=== PATIENT | male | born 1955 | race Caucasian/White ===

== ENCOUNTER → 2019-02-22 10:07 | Outpatient (CLI) | payer MEDICARE, SELFPAY ==
--- NOTE | 2019-02-22 10:15 | CA_ITS ---
PROCEDURE: 2-D M-mode and color Doppler study INDICATIONS FOR THE TEST: Chest pain COPDX Heart Murmur Tobacco SmokingX Palpitations Fatigue Syncope Edema HypertensionXDiabetes Mellitus Rheumatic Fever SOB [place] Obesity HyperlipidemiaX Family History HD Additional History CAD,RBBB,STENTS PATIENT INFORMATION HEIGHT: 68 WEIGHT:176 GENDER: Male B/P:106/70 2-D/M-MODE INTERPRETATION: 2-D MEASUREMENTS OBSERVED VALUES IN CMS Right Ventricular Dimension (RVDd) 2.0 Interventricular Septum (Thickness)(IVsd) 1.1 Left Ventricular Internal Dimensions(LVIDd) 4.7 Left Ventricular Posterior Wall (Thickness)(LVPWd) 1.2 Aortic Root 3.8 Aortic Cusp Separation 2.1 Left Atrial Dimensions (LAD) 2.5 2D 1. Left atrium is mildly enlarged, left ventricle is normal size, mild concentric left ventricular hypertrophy, visually estimated ejection fraction 55% with no regional wall motion abnormality. 2. The right atrium and right ventricle are normal size and contractility. 3. The aortic valve is thickened and calcified leaflet continue to display mobility. 4. The mitral valve has systolic anterior motion of the mitral valve leaflets. 5. The tricuspid valve is grossly normal. 6. The pulmonic valve is poorly present. 7. No significant pericardial effusion noted. DOPPLER INTERROGATION: Doppler interrogation of the aortic, mitral and tricuspid valvular presence of mild aortic, mild mitral and tricuspid regurgitation, tricuspid regurgitation jet velocity is inadequate for calculation of the right ventricular systolic pressure, grade 1 diastolic dysfunction seen without tissue Doppler evidence of raised left atrial pressure, there is no dynamic left ventricular outflow track obstruction seen at rest. CONCLUSION: 1. Mildly enlarged left atrium, normal left ventricular size, mild concentric left ventricular hypertrophy, visually estimated ejection fraction 55% with no regional wall motion abnormality, grade 1 diastolic dysfunction seen without tissue Doppler evidence of raised left atrial pressure. 2. Mild aortic, mild mitral and tricuspid regurgitation 3. Systolic anterior motion of the mitral valve leaflets, there is no dynamic left ventricular outflow track obstruction seen at rest. 4. No significant pericardial effusion noted.
== END ==
PROVIDERS: PCP Nurse Practitioner Family; Visit Provider Internal Medicine
DX: I25.10 Atherosclerotic heart disease of native coronary artery without angina pectoris (principal)
CPT/HCPCS: 93306

== ENCOUNTER → 2021-08-20 12:04 | Outpatient (CLI) | payer MEDICARE, SELFPAY ==
--- NOTE | 2021-08-20 12:11 | XR_ITS ---
PROCEDURE: XR CHEST 2V CLINICAL HISTORY: tobacco use COMPARISON: No exams were available for comparison FINDINGS: The cardiomediastinal silhouette and pulmonary vascularity are within normal limits. COPD changes. Calcified granuloma left midlung. On the lateral view there appears to be cystic changes along the anterior hemithorax inferiorly. It is uncertain whether this is on the right or the left. No acute bony abnormalities. IMPRESSION: Cystic changes along the anterior hemithorax inferiorly. This could be post inflammatory, infectious, or even neoplastic. Chest CT with contrast suggested further evaluation. Dictated by: Chaz Pruett MD 08/20/2021 13:39 Chaz Pruett MD in [facility] 08/20/2021 13:39
== END ==
PROVIDERS: PCP Nurse Practitioner Family; Visit Provider Internal Medicine
DX: F17.200 Nicotine dependence, unspecified, uncomplicated (principal); I25.10 Atherosclerotic heart disease of native coronary artery without angina pectoris; R00.2 Palpitations
CPT/HCPCS: 71046; 93225; 93226

== ENCOUNTER → 2021-08-22 15:28 | Outpatient (CLI) | payer MEDICARE, SELFPAY ==
[2021-08-22 17:13] LABS: Blood Urea Nitrogen 14 mg/dl (9-20); Estimated Glomerular Filt Rate 85 ml/min (>60); GFR (African American) 103 ML/MIN (>60)
== END ==
PROVIDERS: Visit Provider Internal Medicine
DX: Z01.812 Encounter for preprocedural laboratory examination (principal)
CPT/HCPCS: 82565; 84520

== ENCOUNTER → 2021-08-28 13:05 | Outpatient (CLI) | payer MEDICARE, SELFPAY ==
--- NOTE | 2021-08-28 13:05 | CT_ITS ---
PROCEDURE: CT CHEST W CON CLINCAL INDICATION: abnl cxr Chest pain COMPARISON: CR XR CHEST 2V from 08/20/2021 TECHNIQUE: IV Contrast: 75ml Isovue 370 Axial images obtained with sagittal and coronal reformats. All CT scans at the facility use one or more dose reduction, viz: automated exposure control, ma/kV adjustment per patient size (including targeted exams where dose is matched to indication, i.e. head), or iterative reconstruction technique. FINDINGS: HEART AND MEDIASTINAL STRUCTURES: No mediastinal or hilar mass or adenopathy. Calcified nodes are present in the mediastinum. Coronary artery calcifications and/or stents noted. LUNGS AND PLEURAL SPACES: Panlobular emphysematous changes. The scattered areas of scarring. Faint ground-glass infiltrate noted in the right lower lobe. 6 mm noncalcified nodule in the lingula. Pneumatocele is present in the medial aspect of the left upper lobe. Irregular opacity is present in the lingula anteriorly and inferiorly and may be due to scarring and may account for part of the radiographic abnormality. Also scarring in the right middle lobe could account for part of the radiographic abnormality is well. Both of these areas which project over the anterior hemithorax on the lateral view. BONY STRUCTURES: No acute bony abnormalities apparent. 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 IMPRESSION: 1. No acute finding. 2. Radiographic abnormality could be explained by the scarring in the right middle lobe and lingula and by overlying COPD changes 6 mm noncalcified nodule in the lingula and parenchymal opacity also in the lingula inferiorly which could be due to scarring. Suggest 6 month follow-up to confirm stability. 3. COPD with panlobular emphysema 4. 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
== END ==
PROVIDERS: PCP Nurse Practitioner Family; Visit Provider Nurse Practitioner Family
DX: R93.89 Abnormal findings on diagnostic imaging of other specified body structures (principal)
CPT/HCPCS: 71260; Q9967

== ENCOUNTER 2024-04-23 10:13 | Outpatient (CLI) | payer MEDICARE, SELFPAY ==
--- NOTE | 2024-04-23 10:17 | CA_ITS ---
APPROVED REPORT EXAM: Comprehensive 2D, Doppler, and color-flow Echocardiogram Supervisor Ditching: Leigh Loja CRT Ht: 5 ft 8 in Wt: 165lbs BSA: 1.88 BP: 100/63 mmHg Indications: CAD, Hyperlipidemia, Hypertension/HDD, smoker, Stents, PAD, PVD 2D Dimensions LA Volume 22.40 mL LA Volume Index 11.60 mL/m2 (M/F) 16-34 M-Mode Dimensions RVDd 2.29 cm (0.9-2.6) LA Diam 3.17 cm (1.9-4.0) LVDd 3.66 cm (3.5-5.7) LVDs 2.58 cm (3.5-5.7) IVSd 1.81 cm (0.6-1.1) PWd 0.80 cm (0.6-1.1) EF (Teich) 57.40% FS 29.50% EDV (Teich) 56.60 mL TAPSE 1.57 (<1.7) ESV (Teich) 24.10 mL LV Diastology MED A' 10.50 cm/s LAT A' 11.30 cm/s Aortic Valve AI PHT 461.00 ms AO Peak GR. 8.60 mmHg Tricuspid Valve TR P. Velocity 86.00 cm/s Left Ventricle The left ventricle is normal size. The left ventricular systolic function is normal. The left ventricular ejection fraction is within the normal range. There is increased overall thickness. There is normal LV segmental wall motion. The left ventricular diastolic function is normal. LVEF is 55%. Right Ventricle The right ventricle is normal size. The right ventricular systolic function is normal. Atria The left atrium size is normal. The right atrium size is normal. There is no Doppler evidence of interatrial shunt. Aortic Valve Aortic valve is mildly thickened. There is no aortic valvular stenosis. Trace aortic regurgitation. Mitral Valve The mitral valve is normal in structure. No evidence of mitral valve stenosis. There is no mitral valve regurgitation noted. Tricuspid Valve The tricuspid valve leaflets are thin and pliable. Trace tricuspid regurgitation. There is insufficient TR jet to estimate RVSP. Pulmonic Valve The pulmonary valve is normal in structure. Trace pulmonic regurgitation. Great Vessels The aortic root is normal in size. The ascending aorta was not well-visualized. IVC is normal in size and collapses >50% with inspiration. Pericardium There is no pericardial effusion. Other Information Study Quality: Technically Difficult Conclusion Technically difficult study due to poor acoustic windows. Normal biventricular systolic function. No significant valvular stenosis or regurgitation. Electronically signed by : Bridget Douglas MD 04/26/2024 14:31:35
== END 2024-04-23 23:59 | disposition home or self-care (01) ==
LOC: RT 10:15
PROVIDERS: Visit Provider Physician Assistant
DX: R06.02 Shortness of breath (principal)
CPT/HCPCS: 93306

== ENCOUNTER 2025-06-13 14:30 | Outpatient (CLI) | payer MEDICARE, SELFPAY ==
--- NOTE | 2025-06-13 | CA_ITS ---
FINAL REPORT CLINICAL HISTORY: Patient states he sustained trauma to LLE 3 weeks ago on a amusement park ride. A knot appeared at proximal calf 1 hour post trauma. He says he takes a blood thinner daily for CAD and an 81 mg ASA daily. HTN, HLD, smoker COMPARISON: None FINDINGS: DUPLEX VENOUS SONOGRAPHY OF THE LEFT LOWER EXTREMITY Multiple transverse and longitudinal scans were performed of the femoropopliteal deep venous system, with augmentation and compression maneuvers. HISTORY: Pain, history of trauma FINDINGS: Normal phasic flow was noted in the visualized deep venous system. No intraluminal increased echogenicity is noted to suggest thrombus. There is normal compression and augmentation of the venous structures. No abnormal venous collaterals are seen. IMPRESSION: No evidence of deep venous thrombosis of the left lower extremity. Reviewed, Interpreted and Dictated by Rupal Keenan MD Transcribed by Ashlie Liriano Authenticated and . [facility]
--- OUTSIDE RECORDS SUMMARY | 2025-06-13 14:33 | XMS_ITS | Encounter Summary ---
Author Organization [facility] Address [address] [place] [address] Care Team Providers Care Power Project Manager Name Role Phone Shala Ware MD Primary Care Provider [phone] Mary Ann Cary MD Primary Care Provider Unavailabl Oralia Otoole APRN Primary Care Provider [phone] Doctor, No Primary Care Provider Unavailabl Jane Bolton MD Primary Care Provider [phone] Rula Anthony MD Unavailable [phone] Tayler Nelson APRN Unavailable [phone] Ria Carbone APRN Primary Care Provider [phone] Encounter Details Date Type Department Care Team (Late st Contact Info) Description 02/25/1996 Historical Encounter Global Social History Tobacco Use Types Packs/Day Years Used Date Smoking Tobacco: Never Assessed Sex and Gender Information Value Date Recorded Sex Assigned at Not on file Legal Sex Male 9:52 PM EST Gender Identity Not on file Sexual Orientation Not on file documented as of this encounter Plan of Treatment Not on file documented as of this encounter Visit Diagnoses Not on filedocumented in this encounter Care Teams Power Project Manager Relationship Specialty Start Date End Date Shala Ware MD [address] [place] [address] PCP - General 06/14/08 09/08/12 Mary Ann Cary MD [address] [place] [address] PCP - General Family Medicine 09/09/12 02/16/15 Oralia Jarrett APRN [address] [place] [address] PCP - General Nurse Practitioner 02/17/15 07/30/15 Trisha Bustamante [place], [place] PCP - General Family Medicine 07/31/15 11/07/17 Jane Oden MD [address] [place] [address] [address] [place] [address] PCP - General Obstetrics & Gynecology 05/09/20 1 Ria Carbone APRN [facility] [address] [address] PCP - General Nurse Practitioner 02/08/21 Rula Anthony MD [address] [facility] [address] [place] [address] Pulmonary Disease 05/09/20 Tayler Nelson APRN [address] [place] [address] [facility] [address] [place] [address] Nurse Practitioner Nurse Practitioner 01/29/21 documented as of this encounter
--- OUTSIDE RECORDS SUMMARY | 2025-06-13 14:33 | XMS_ITS | Encounter Summary ---
Author Organization [facility] Address [address] [place] [address] Care Team Providers Care Cabinetmaker Supervisor Name Role Phone Shala Ware MD Primary Care Provider [phone] Mary Ann Cary MD Primary Care Provider Unavailabl Oralia Otoole APRN Primary Care Provider [phone] Doctor, No Primary Care Provider Unavailabl Jane Bolton MD Primary Care Provider [phone] Rula Anthony MD Unavailable [phone] Tayler Nelson APRN Unavailable [phone] Ria Carbone APRN Primary Care Provider [phone] Encounter Details Date Type Department Care Team (Late st Contact Info) Description 06/27/2004 Historical Encounter Global Mily Castro MD [address] [place] [address] [place] QURESHI [id number] Social History Tobacco Use Types Packs/Day Years [...] on filedocumented in this encounter Care Teams Cabinetmaker Supervisor Relationship Specialty Start Date End Date Shala Ware MD [address] [place] [address] PCP - General 06/14/08 09/08/12 Mary Ann Cary MD [address] [place] [address] PCP - General Family Medicine 09/09/12 02/16/15 Oralia Jarrett APRN [address] [place] [address] PCP - General Nurse Practitioner 02/17/15 07/30/15 Trisha Bustamante [place], [place] PCP - General Family Medicine 07/31/15 11/07/17 Jane Oden MD [address] [place] [address] [address] [place] [address] PCP - General Obstetrics & Gynecology 05/09/20 1 Ria Carbone APRN [address] [address] PCP - General Nurse Practitioner 02/08/21 Rula Anthony MD [address] [facility] [address] [place] [address] Pulmonary Disease 05/09/20 Tayler Nelson APRN [address] [place] [address] [address] Nurse Practitioner Nurse Practitioner 01/29/21 documented as of this encounter
--- OUTSIDE RECORDS SUMMARY | 2025-06-13 14:33 | XMS_ITS | Encounter Summary ---
Author Organization [facility] Address [address] [place] [address] Care Team Providers Care Keying Machine Operator Name Role Phone Shala Ware MD Primary Care Provider [phone] Mary Ann Cary MD Primary Care Provider Unavailabl Oralia Otoole APRN Primary Care Provider [phone] Doctor, No Primary Care Provider Unavailabl Jane Bolton MD Primary Care Provider [phone] Rula Anthony MD Unavailable [phone] Tayler Nelson APRN Unavailable [phone] Ria Carbone APRN Primary Care Provider [phone] Encounter Details Date Type Department Care Team (Late st Contact Info) Description 10/22/2005 Historical Encounter Global Torie Castillo MD [address] [place], [place] [id number] Social History Tobacco Use Types Packs/Day Years [...] on filedocumented in this encounter Care Teams Keying Machine Operator Relationship Specialty Start Date End Date Shala Ware MD [address] [place] [address] PCP - General 06/14/08 09/08/12 Mary Ann Cary MD [address] [place] [address] PCP - General Family Medicine 09/09/12 02/16/15 Oralia Jarrett APRN [address] [place] [address] PCP - General Nurse Practitioner 02/17/15 07/30/15 Trisha Bustamante [place], [place] PCP - General Family Medicine 07/31/15 11/07/17 Jane Oden MD [address] [place] [address] [address] [place] [address] PCP - General Obstetrics & Gynecology 05/09/20 1 Ria Carbone APRN [address], [place] [address] PCP - General Nurse Practitioner 02/08/21 Rula Anthony MD 1000 [facility] [address] [place], [place] [address] Pulmonary Disease 05/09/20 Tayler Nelson APRN 1000 [facility] [address] [place] [address] Nurse Practitioner Nurse Practitioner 01/29/21 documented as of this encounter
--- OUTSIDE RECORDS SUMMARY | 2025-06-13 14:33 | XMS_ITS | Encounter Summary ---
Author Organization [facility] Address [address] [place] [address] Care Team Providers Care Clinical Psychologist Private Practice Name Role Phone Mary Ann Cary MD Primary Care Provider Unavailabl e Oralia Jarrett APRN Primary Care Provider [phone] Doctor, No Primary Care Provider Unavailtimo e Jane Oden MD Primary Care Provider [phone] Rula Anthony MD Unavailable [phone] Tayler Nelson APRN Unavailable [phone] Ria Carbone APRN Primary Care Provider [phone] Reason for Visit * Reason Onset Date Comments Results - Test 09/15/2012 Encounter Details Date Type Department Care Team (Late st Contact Info) Description 09/15/[address] [address] Mary Ann Cary MD Results - Test Social History Tobacco Use Types Packs/Day Years Used Date Smoking Tobacco: Every Day Cigarettes 1.3 0.5 Smokeless Tobacco: Never Comments:Quit Smoking 2005 S moked 3 ppd/ 40 years Alcohol Use Standard Drinks/Week Comments No 0 (1 standard drink = 0.6 oz pur e alcohol) Rare Etoh Use Sex and Gender Information Value Date Recorded Sex Assigned at Not on file Legal Sex Male 9:52 PM EST Gender Identity Not on file Sexual Orientation Not on file documented as of this encounter Miscellaneous Notes * Telephone Encounter - Sirena Barrera LPN - 09/16/2012 12:23 PM EST Pt has been notified * Telephone Encounter - Mary Ann Cary MD - 09/15/2012 9:31 PM EST US gallbladder is normal. HIDA scan is the next step if the patient is agreeable. documented in this encounter Plan of Treatment Not on file documented as of this encounter Visit Diagnoses Not on filedocumented in this encounter Care Teams Clinical Psychologist Private Practice Relationship Specialty Start Date End Date Mary Ann Cary MD PCP - General Family Medicine 09/09/12 02/16/15 Oralia Jarrett APRN [address] [place] [address] PCP - General Nurse Practitioner 02/17/15 07/30/15 Trisha Bustamante [place], [place] PCP - General Family Medicine 07/31/15 11/07/17 Jane Oden MD [address] [place] [address] [address] [place] [address] PCP - General Obstetrics & Gynecology 05/09/20 1 Ria Carbone APRN [address] [place] [address] PCP - General Nurse Practitioner 02/08/21 Rula Anthony MD 1000 [facility] [address] [place] [address] Pulmonary Disease 05/09/20 Tayler Nelson APRN [address] [facility] [address] [place] [address] Nurse Practitioner Nurse Practitioner 01/29/21 documented as of this encounter
--- OUTSIDE RECORDS SUMMARY | 2025-06-13 14:33 | XMS_ITS | Encounter Summary ---
Author Organization [facility] Address [address] [place] [address] Care Team Providers Care Supervisor Poultry Hatchery Name Role Phone Shala Ware MD Primary Care Provider [phone] Mary Ann Cary MD Primary Care Provider Unavailabl Oralia Otoole APRN Primary Care Provider [phone] Doctor, No Primary Care Provider Unavailabl Jane Bolton MD Primary Care Provider [phone] Rula Anthony MD Unavailable [phone] Tayler Nelson APRN Unavailable [phone] Ria Carbone APRN Primary Care Provider [phone] Encounter Details Date Type Department Care Team (Late st Contact Info) Description 06/06/1995 Historical Encounter Global Social History Tobacco Use [...] on filedocumented in this encounter Care Teams Supervisor Poultry Hatchery Relationship Specialty Start Date End Date Shala Ware MD [address] [place] [address] PCP - General 06/14/08 09/08/12 Mary Ann Cary MD [address] [place] [address] PCP - General Family Medicine 09/09/12 02/16/15 Oralia Jarrett APRN [address] [place] [address] PCP - General Nurse Practitioner 02/17/15 07/30/15 Trisha Bustamante [place], [place] PCP - General Family Medicine 07/31/15 11/07/17 Jane Oden MD [address] [place] [address] [address] [place] [address] PCP - General Obstetrics & Gynecology 05/09/20 1 Ria Carbone APRN [facility] [address] [address] PCP - General Nurse Practitioner 02/08/21 Rula Anthony MD 1000 [facility] [address] [place] [address] Pulmonary Disease 05/09/20 Tayler Nelson APRN [address] [place] [address] [facility] [address] [place] [address] Nurse Practitioner Nurse Practitioner 01/29/21 documented as of this encounter
--- OUTSIDE RECORDS SUMMARY | 2025-06-13 14:33 | XMS_ITS | Encounter Summary ---
Author Organization [facility] Address [address] [place] [address] Care Team Providers Care Drawing Kiln Operator Name Role Phone Shala Ware MD Primary Care Provider [phone] Mary Ann Cary MD Primary Care Provider Unavailabl Oralia Otoole APRN Primary Care Provider [phone] Doctor, No Primary Care Provider Unavailabl Jane Bolton MD Primary Care Provider [phone] Rula Anthony MD Unavailable [phone] Tayler Nelson APRN Unavailable [phone] Ria Carbone APRN Primary Care Provider [phone] Encounter Details Date Type Department Care Team (Late st Contact Info) Description 08/16/1996 Historical Encounter Global Social History Tobacco Use [...] on filedocumented in this encounter Care Teams Drawing Kiln Operator Relationship Specialty Start Date End Date Shala Ware MD [address] [place] [address] PCP - General 06/14/08 09/08/12 Mary Ann Cary MD [address] [place] [address] PCP - General Family Medicine 09/09/12 02/16/15 Oralia Jarrett APRN [address] [place] [address] PCP - General Nurse Practitioner 02/17/15 07/30/15 Trisha Bustamante [place], [place] PCP - General Family Medicine 07/31/15 11/07/17 Jane Oden MD [address] [place] [address] [address] [place] [address] PCP - General Obstetrics & Gynecology 05/09/20 1 Ria Carbone APRN [facility] [address] [address] PCP - General Nurse Practitioner 02/08/21 Rula Anthony MD 1000 [facility] [address] [place] [address] Pulmonary Disease 05/09/20 Tayler Nelson APRN [address] [place] [address] [facility] [address] [place] [address] Nurse Practitioner Nurse Practitioner 01/29/21 documented as of this encounter
--- OUTSIDE RECORDS SUMMARY | 2025-06-13 14:33 | XMS_ITS | Encounter Summary ---
Author Organization [facility] Address [address] [place] [address] Care Team Providers Care Overlock Sleeve Setter Name Role Phone Shala Ware MD Primary Care Provider [phone] Mary Ann Cary MD Primary Care Provider Unavailabl Oralia Otoole APRN Primary Care Provider [phone] Doctor, No Primary Care Provider Unavailabl Jane Bolton MD Primary Care Provider [phone] Rula Anthony MD Unavailable [phone] Tayler Nelson APRN Unavailable [phone] Ria Carbone APRN Primary Care Provider [phone] Encounter Details Date Type Department Care Team (Late st Contact Info) Description 10/31/2005 Historical Encounter Global Torie Castillo MD [address] [place], [place] [address] Social History Tobacco Use Types Packs/Day Years [...] on filedocumented in this encounter Care Teams Overlock Sleeve Setter Relationship Specialty Start Date End Date Shala Ware MD [address] [place] [address] PCP - General 06/14/08 09/08/12 Mary Ann Cary MD [address] [place] [address] PCP - General Family Medicine 09/09/12 02/16/15 Oralia Jarrett APRN [address] [place] [address] PCP - General Nurse Practitioner 02/17/15 07/30/15 Trisha Bustamante [place], [place] PCP - General Family Medicine 07/31/15 11/07/17 Jane Oden MD [address] [place] [address] [address] [place] [address] PCP - General Obstetrics & Gynecology 05/09/20 1 Ria Carbone APRN [address] [address] PCP - General Nurse Practitioner 02/08/21 Rula Anthony MD 1000 [facility] [address] [place], [place] [address] Pulmonary Disease 05/09/20 Tayler Nelson APRN 1000 [facility] [address] [place] [address] Nurse Practitioner Nurse Practitioner 01/29/21 documented as of this encounter
--- OUTSIDE RECORDS SUMMARY | 2025-06-13 14:33 | XMS_ITS | Encounter Summary ---
Author Organization [facility] Address [address] [place] [address] Care Team Providers Care Payroll Officer Name Role Phone Shala Ware MD Primary Care Provider [phone] Mary Ann Cary MD Primary Care Provider Unavailabl Oralia Otoole APRN Primary Care Provider [phone] Doctor, No Primary Care Provider Unavailabl Jane Bolton MD Primary Care Provider [phone] Rula Anthony MD Unavailable +[phone] Tayler Nelson APRN Unavailable [phone] Ria Carbone APRN Primary Care Provider [phone] Encounter Details Date Type Department Care Team (Late st Contact Info) Description 05/05/2006 Historical Encounter Global Bimal Jasso MD [address] [place] [address] Social History Tobacco Use Types Packs/Day Years [...] on filedocumented in this encounter Care Teams Payroll Officer Relationship Specialty Start Date End Date Shala Ware MD [address] [place] [address] PCP - General 06/14/08 09/08/12 Mary Ann Cary MD [address] [place] [address] PCP - General Family Medicine 09/09/12 02/16/15 Oralia Jarrett APRN [address] [place] [address] PCP - General Nurse Practitioner 02/17/15 07/30/15 Trisha Bustamante [place], [place] PCP - General Family Medicine 07/31/15 11/07/17 Jane Oden MD [address] [place] [address] [address] [place] [address] PCP - General Obstetrics & Gynecology 05/09/20 Ria Carbone APRN [address] [address] PCP - General Nurse Practitioner 02/08/21 Rula Anthony MD 1000 [facility] [address] [place] [address] Pulmonary Disease 05/09/20 Tayler Nelson APRN [address] [place] [address] [facility] [address] [place] [address] Nurse Practitioner Nurse Practitioner 01/29/21 documented as of this encounter
--- OUTSIDE RECORDS SUMMARY | 2025-06-13 14:33 | XMS_ITS | Encounter Summary ---
Author Organization [facility] Address [address] [place] [address] Care Team Providers Care Etl Analyst Developer Name Role Phone Shala Ware MD Primary Care Provider [phone] Mary Ann Cary MD Primary Care Provider Unavailabl Oralia Otoole APRN Primary Care Provider [phone] Doctor, No Primary Care Provider Unavailabl Jane Bolton MD Primary Care Provider [phone] Rula Anthony MD Unavailable +[phone] Tayler Nelson APRN Unavailable +[phone] Ria Carbone APRN Primary Care Provider +[phone]- [phone] Encounter Details Date Type Department Care Team (Late st Contact Info) Description 10/15/2005 Historical Encounter Global Torie Castillo MD [address] [place], [place] [id number] Social History Tobacco Use Types Packs/Day Years [...] on filedocumented in this encounter Care Teams Etl Analyst Developer Relationship Specialty Start Date End Date Shala Ware MD [address] [place] [address] PCP - General 06/14/08 09/08/12 Mary Ann Cary MD [address] [place] [address] PCP - General Family Medicine 09/09/12 02/16/15 Oralia Jarrett APRN [address] [place] [address] PCP - General Nurse Practitioner 02/17/15 07/30/15 Trisha Bustamante [place] PCP - General Family Medicine 07/31/15 11/07/17 Jane Oden MD [address] [place] [address] [address] [place] [address] PCP - General Obstetrics & Gynecology 05/09/20 1 Ria Carbone APRN [address], [place] [address] PCP - General Nurse Practitioner 02/08/21 Rula Anthony MD 1000 [facility] [address] [place], [place] [address] Pulmonary Disease 05/09/20 Tayler Nelson APRN 1000 [facility] 104 [place] [address] Nurse Practitioner Nurse Practitioner 01/29/21 documented as of this encounter
--- OUTSIDE RECORDS SUMMARY | 2025-06-13 14:33 | XMS_ITS | Encounter Summary ---
Author Organization [facility] Address [address] [place] [address] Care Team Providers Care Lighting Designer Name Role Phone Shala Ware MD Primary Care Provider [phone] Mary Ann Cary MD Primary Care Provider Unavailabl Oralia Otoole APRN Primary Care Provider [phone] Doctor, No Primary Care Provider Unavailabl Jane Bolton MD Primary Care Provider +[phone] Rula Anthony MD Unavailable +[phone] Tayler Nelson APRN Unavailable +[phone] Ria Carbone APRN Primary Care Provider +[phone] Encounter Details Date Type Department Care Team (Late st Contact Info) Description 06/13/2004 Historical Encounter Global Mily Castro MD [address] [place] [address] [place]HI [id number] Social History Tobacco Use Types Packs/Day Years [...] on filedocumented in this encounter Care Teams Lighting Designer Relationship Specialty Start Date End Date Shala Ware MD [address] [place] [address] PCP - General 06/14/08 09/08/12 Mary Ann Cary MD [address] [place] [address] PCP - General Family Medicine 09/09/12 02/16/15 Oralia Jarrett APRN [address] [place] [address] PCP - General Nurse Practitioner 02/17/15 07/30/15 Trisha Bustamante [place], [place] PCP - General Family Medicine 07/31/15 11/07/17 Jane Oden MD [address] [place] [address] [address] [place] [address] PCP - General Obstetrics & Gynecology 05/09/20 1 Ria Carbone APRN [address], [place] [address] PCP - General Nurse Practitioner 02/08/21 Rula Anthony MD 1000 [facility] [address] [place] [address] Pulmonary Disease 05/09/20 Tayler Nelson APRN [address] [place] [address] [address] Nurse Practitioner Nurse Practitioner 01/29/21 documented as of this encounter
--- OUTSIDE RECORDS SUMMARY | 2025-06-13 14:33 | XMS_ITS | Encounter Summary ---
Author Organization [facility] Address [address] [place] [address] Care Team Providers Care Components Engineer Name Role Phone Shala Ware MD Primary Care Provider [phone] Mary Ann Cary MD Primary Care Provider UnavailOralia Irizarry APRN Primary Care Provider [phone] Doctor, No Primary Care Provider UnavailJane Gatica MD Primary Care Provider [phone] Rula Anthony MD Unavailable +[phone] Tayler Nelson APRN Unavailable +[phone] Ria Carbone APRN Primary Care Provider [phone] Encounter Details Date Type Department Care Team (Late st Contact Info) Description 10/02/2005 Historical Encounter Global Kushal Balderas DO Social History Tobacco Use Types Packs/Day Years [...] on filedocumented in this encounter Care Teams Components Engineer Relationship Specialty Start Date End Date Shala Ware MD [address] [place], [place] [address] PCP - General 06/14/08 09/08/12 Mary Ann Cary MD [address] [place] [address] PCP - General Family Medicine 09/09/12 02/16/15 Oralia Jarrett APRN [address] [place] [address] PCP - General Nurse Practitioner 02/17/15 07/30/15 Trisha Bustamante [place], [place] PCP - General Family Medicine 07/31/15 11/07/17 Jane Oden MD [address] [place] [address] [address] [place] [address] PCP - General Obstetrics & Gynecology 05/09/20 1 Ria Carbone APRN [address] [place] [address] PCP - General Nurse Practitioner 02/08/21 Rula Anthony MD 1000 [facility] [address] [place] [address] Pulmonary Disease 05/09/20 Tayler Nelson APRN 1000 [facility] 104 [place] [address] Nurse Practitioner Nurse Practitioner 01/29/21 documented as of this encounter
--- OUTSIDE RECORDS SUMMARY | 2025-06-13 14:33 | XMS_ITS | Encounter Summary ---
Author Organization [facility] Address [address] [place] [address] Care Team Providers Care Protection Chief Industrial Plant Name Role Phone Rula Anthony MD Unavailable + [phone] Tayler Nelson APRN Unavailable Ria Carbone APRN Primary Care Provider Encounter Details Date Type Department Care Team (Late st Contact Info) Description 07/21/2023 Orders Only Centralized Scheduling 1 [place] [address] Ria Carbone APRN [address] [place] [address] Social History Tobacco Use Types Packs/Day Years Used Date Smoking Tobacco: Every Day Cigarettes 0.5 50 Smokeless Tobacco: Never Comments:Quit Smoking 2004 S moked 3 ppd/ 40 years; as of 01/29/21 Alcohol Use Standard Drinks/Week Comments No 0 [...] on filedocumented in this encounter Care Teams Protection Chief Industrial Plant Relationship Specialty Start Date End Date Ria Carbone APRN [address] [place] [address] PCP - General Nurse Practitioner 02/08/21 Rula Anthony MD 1000 [facility] 302 [place] [address] Pulmonary Disease 05/09/20 Tayler Nelson APRN [address] [place] [address] Nurse Practitioner Nurse Practitioner 01/29/21 documented as of this encounter
--- OUTSIDE RECORDS SUMMARY | 2025-06-13 14:33 | XMS_ITS | Encounter Summary ---
Author Organization [facility] Address [address] [place] [address] Care Team Providers Care Assistant Statistician Name Role Phone Shala Ware MD Primary Care Provider [phone] Mary Ann Cary MD Primary Care Provider Unavailabl Oralia Otoole APRN Primary Care Provider [phone] Doctor, No Primary Care Provider Unavailabl Jane Bolton MD Primary Care Provider [phone] Rula Anthony MD Unavailable +[phone] Tayler Nelson APRN Unavailable +[phone] Ria Carbone APRN Primary Care Provider +[phone]- [phone] Encounter Details Date Type Department Care Team (Late st Contact Info) Description 10/10/2003 Historical Encounter Global Cr Yao MD Social History Tobacco Use Types Packs/Day Years [...] on filedocumented in this encounter Care Teams Assistant Statistician Relationship Specialty Start Date End Date Shala Ware MD [address] [place] [address] PCP - General 06/14/08 09/08/12 Mary Ann Cary MD [address] [place] [address] PCP - General Family Medicine 09/09/12 02/16/15 Oralia Jarrett APRN [address] [place] [address] PCP - General Nurse Practitioner 02/17/15 07/30/15 Trisha Bustamante [place], [place] PCP - General Family Medicine 07/31/15 11/07/17 Jane Oden MD [address] [place] [address] [address] [place] [address] PCP - General Obstetrics & Gynecology 05/09/20 1 Ria Carbone APRN [address] [place] [address] PCP - General Nurse Practitioner 02/08/21 Rula Anthony MD [address] [facility] [address] [place] [address] Pulmonary Disease 05/09/20 Tayler Nelson APRN [address] [place] [address] [facility] 104 [place] [address] Nurse Practitioner Nurse Practitioner 01/29/21 documented as of this encounter
--- OUTSIDE RECORDS SUMMARY | 2025-06-13 14:33 | XMS_ITS | Encounter Summary ---
Author Organization [facility] Address [address] [place] [address] Care Team Providers Care Bottom Precipitator Operator Name Role Phone Shala Ware MD Primary Care Provider [phone] Mary Ann Cary MD Primary Care Provider Unavailabl Oralia Otoole APRN Primary Care Provider [phone] Doctor, No Primary Care Provider Unavailabl Jane Bolton MD Primary Care Provider [phone] Rula Anthony MD Unavailable +[phone] Tayler Nelson APRN Unavailable +[phone] Ria Carbone APRN Primary Care Provider +[phone]- [phone] Encounter Details Date Type Department Care Team (Late st Contact Info) Description 07/04/1994 Historical Encounter Global Social History Tobacco Use [...] on filedocumented in this encounter Care Teams Bottom Precipitator Operator Relationship Specialty Start Date End Date Shala Ware MD [address] [place] [address] PCP - General 06/14/08 09/08/12 Mary Ann Cary MD [address] [place] [address] PCP - General Family Medicine 09/09/12 02/16/15 Oralia Jarrett APRN [address] [place] [address] PCP - General Nurse Practitioner 02/17/15 07/30/15 Trisha Bustamante [place], [place] PCP - General Family Medicine 07/31/15 11/07/17 Jane Oden MD [address] [place] [address] [address] [place] [address] PCP - General Obstetrics & Gynecology 05/09/20 1 Ria Carbone APRN [facility] 16[place] [address] PCP - General Nurse Practitioner 02/08/21 Rula Anthony MD 1000 [facility] [address] [place] [address] Pulmonary Disease 05/09/20 Tayler Nelson APRN [address] [place] [address] [facility] 104 [place] [address] Nurse Practitioner Nurse Practitioner 01/29/21 documented as of this encounter
--- OUTSIDE RECORDS SUMMARY | 2025-06-13 14:33 | XMS_ITS | Encounter Summary ---
Author Organization [facility] Address [address] [place] [address] Care Team Providers Care Pearl Maker Name Role Phone Shala Ware MD Primary Care Provider [phone] Mary Ann Cary MD Primary Care Provider Unavailabl Oralia Otoole APRN Primary Care Provider [phone] Doctor, No Primary Care Provider Unavailabl Jane Bolton MD Primary Care Provider [phone] Rula Anthony MD Unavailable +[phone] Tayler Nelson APRN Unavailable +[phone] Ria Carbone APRN Primary Care Provider +[phone]- [phone] Encounter Details Date Type Department Care Team (Late st Contact Info) Description 06/10/2003 Historical Encounter Global Oralia Jarrett APRN [address] [place] [address] Social History Tobacco Use Types Packs/Day Years [...] on filedocumented in this encounter Care Teams Pearl Maker Relationship Specialty Start Date End Date Shala Ware MD [address] [place] [id number] PCP - General 9/9/08 12/4/12 Mary Ann Cary MD [address] [place] [address] PCP - General Family Medicine 09/09/12 02/16/15 Oralia Jarrett APRN [address] [place] [address] PCP - General Nurse Practitioner 02/17/15 07/30/15 Trisha Bustamante [place], [place] PCP - General Family Medicine 07/31/15 11/07/17 Jane Oden MD [address] [place] [address] [address] [place] [address] PCP - General Obstetrics & Gynecology 05/09/20 1 Ria Carbone APRN [address] [place] [address] PCP - General Nurse Practitioner 02/08/21 Rula Anthony MD 1000 [facility] [address] [place], [place] [address] Pulmonary Disease 05/09/20 Tayler Nelson APRN [address] [place] [address] [address] Nurse Practitioner Nurse Practitioner 01/29/21 documented as of this encounter
--- OUTSIDE RECORDS SUMMARY | 2025-06-13 14:33 | XMS_ITS | Encounter Summary ---
Author Organization [facility] Address [address] [place] [address] Care Team Providers Care Video Operator Name Role Phone Shala Ware MD Primary Care Provider [phone] Mary Ann Cary MD Primary Care Provider Unavailabl Oralia Otoole APRN Primary Care Provider [phone] Doctor, No Primary Care Provider Unavailabl Jane Bolton MD Primary Care Provider [phone] Rula Anthony MD Unavailable +[phone] Tayler Nelson APRN Unavailable +[phone] Ria Carbone APRN Primary Care Provider [phone]- [phone] Encounter Details Date Type Department Care Team (Late st Contact Info) Description 10/08/2003 Historical Encounter Global Oralia Jarrett APRN [address] [place] [address] Social History Tobacco Use Types Packs/Day Years [...] on filedocumented in this encounter Care Teams Video Operator Relationship Specialty Start Date End Date Shala Ware MD [address] [place] [id number] PCP - General 9/9/08 12/4/12 Mary Ann Cary MD [address] [place] [address] PCP - General Family Medicine 09/09/12 02/16/15 Oralia Jarrett APRN [address] [place] [address] PCP - General Nurse Practitioner 02/17/15 07/30/15 Trisha Bustamante [place], [place] PCP - General Family Medicine 07/31/15 11/07/17 Jane Oden MD [address] [place] [address] [address] [place] [address] PCP - General Obstetrics & Gynecology 05/09/20 1 Ria Carbone APRN [address] [place] [address] PCP - General Nurse Practitioner 02/08/21 Rula Anthony MD 1000 [facility] [address] [place], [place] [address] Pulmonary Disease 05/09/20 Tayler Nelson APRN [address] [place] [address] [address] Nurse Practitioner Nurse Practitioner 01/29/21 documented as of this encounter
--- OUTSIDE RECORDS SUMMARY | 2025-06-13 14:33 | XMS_ITS | Encounter Summary ---
Author Organization [facility] Address [address] [place] [address] Care Team Providers Care Packing Attendant Name Role Phone Shala Ware MD Primary Care Provider [phone] Mary Ann Cary MD Primary Care Provider Unavailabl Oralia Otoole APRN Primary Care Provider [phone] Doctor, No Primary Care Provider Unavailabl Jane Bolton MD Primary Care Provider +[phone] Rula Anthony MD Unavailable +[phone] Tayler Nelson APRN Unavailable +[phone] Ria Carbone APRN Primary Care Provider [phone] Encounter Details Date Type Department Care Team (Late st Contact Info) Description 06/14/2004 Historical Encounter Global Mily Castro MD [address] [place] [address] [place] [id number] Social History Tobacco Use Types Packs/Day Years [...] on filedocumented in this encounter Care Teams Packing Attendant Relationship Specialty Start Date End Date Shala Ware MD [address] [place] [address] PCP - General 06/14/08 09/08/12 Mary Ann Cary MD [address] [place] [address] PCP - General Family Medicine 09/09/12 02/16/15 Oralia Jarrett APRN [address] [place] [address] PCP - General Nurse Practitioner 02/17/15 07/30/15 Trisha Bustamante [place], [place] PCP - General Family Medicine 07/31/15 11/07/17 Jane Oden MD [address] [place] [address] [address] [place] [address] PCP - General Obstetrics & Gynecology 05/09/20 1 Ria Carbone APRN [address], [place] [address] PCP - General Nurse Practitioner 02/08/21 Rula Anthony MD 1000 [facility] [address] [place] [address] Pulmonary Disease 05/09/20 Tayler Nelson APRN [address] [place] [address] [address] Nurse Practitioner Nurse Practitioner 01/29/21 documented as of this encounter
--- OUTSIDE RECORDS SUMMARY | 2025-06-13 14:33 | XMS_ITS | Encounter Summary ---
Author Organization [facility] Address [address] [place] [address] Care Team Providers Care Security Advisor Name Role Phone Shala Ware MD Primary Care Provider [phone] Mary Ann Cary MD Primary Care Provider Unavailabl Oralia Otoole APRN Primary Care Provider [phone] Doctor, No Primary Care Provider Unavailabl Jane Bolton MD Primary Care Provider +[phone] Rula Anthony MD Unavailable +[phone] Tayler Nelson APRN Unavailable +[phone] Ria Carbone APRN Primary Care Provider [phone] Encounter Details Date Type Department Care Team (Late st Contact Info) Description 02/22/2000 Historical Encounter Global Mily Castro MD [address] [place] [address] [place] [address] Social History Tobacco Use Types Packs/Day Years [...] on filedocumented in this encounter Care Teams Security Advisor Relationship Specialty Start Date End Date Shala Ware MD [address] [place] [address] PCP - General 06/14/08 09/08/12 Mary Ann Cray MD [address] [place] [address] PCP - General Family Medicine 09/09/12 02/16/15 Oralia Jarrett APRN [address] [place] [address] PCP - General Nurse Practitioner 02/17/15 07/30/15 Trisha Bustamante [place], [place] PCP - General Family Medicine 07/31/15 11/07/17 Jane Oden MD [address] [place] [address] [address] [place] [address] PCP - General Obstetrics & Gynecology 05/09/20 1 Ria Carbone APRN [address] 16[place] [address] PCP - General Nurse Practitioner 02/08/21 Rula Anthony MD 1000 [facility] [address] [place] [address] Pulmonary Disease 05/09/20 Tayler Nelson APRN [address] [place] [address] [address] Nurse Practitioner Nurse Practitioner 01/29/21 documented as of this encounter
--- OUTSIDE RECORDS SUMMARY | 2025-06-13 14:33 | XMS_ITS | Encounter Summary ---
Author Organization [facility] Address [address] [place] [address] Care Team Providers Care Assistant Mechanic Name Role Phone Shala Ware MD Primary Care Provider [phone] Mary Ann Cary MD Primary Care Provider Unavailabl Oralia Otoole APRN Primary Care Provider [phone] Doctor, No Primary Care Provider Unavailabl Jane Bolton MD Primary Care Provider +[phone] Rula Anthony MD Unavailable +[phone] Tayler Nelson APRN Unavailable +[phone] Ria Carbone APRN Primary Care Provider [phone] Encounter Details Date Type Department Care Team (Late st Contact Info) Description 12/31/2005 Historical Encounter Global Torie Castillo MD [address] [place], [place] [address] Social History Tobacco Use Types Packs/Day Years [...] filedocumented in this encounter Care Teams Assistant Mechanic Relationship Specialty Start Date End Date Shala Ware MD [address] [place] [address] PCP - General 06/14/08 09/08/12 Mary Ann Cary MD [address] [place] [address] PCP - General Family Medicine 09/09/12 02/16/15 Oralia Jarrett APRN [address] [place] [address] PCP - General Nurse Practitioner 02/17/15 07/30/15 Trisha Bustamante [place], [place] PCP - General Family Medicine 07/31/15 11/07/17 Jane Oden MD [address] [place] [address] [address] [place] [address] PCP - General Obstetrics & Gynecology 05/09/20 1 Ria Carbone APRN [address] [address] PCP - General Nurse Practitioner 02/08/21 Rula Anthony MD 1000 [facility] [address] [place], [place] [address] Pulmonary Disease 05/09/20 Tayler Nelson APRN 1000 [facility] 104 [place] [address] Nurse Practitioner Nurse Practitioner 01/29/21 documented as of this encounter
--- OUTSIDE RECORDS SUMMARY | 2025-06-13 14:33 | XMS_ITS | Encounter Summary ---
Author Organization [facility] Address [address] [place] [address] Care Team Providers Care Bottom Stop Attacher Name Role Phone Shala Ware MD Primary Care Provider [phone] Mary Ann Cary MD Primary Care Provider Unavailabl Oralia Otoole APRN Primary Care Provider [phone] Doctor, No Primary Care Provider Unavailabl Jane Bolton MD Primary Care Provider +[phone] Rula Anthony MD Unavailable +[phone] Tayler Nelson APRN Unavailable +[phone] Ria Carbone APRN Primary Care Provider [phone] Encounter Details Date Type Department Care Team (Late st Contact Info) Description 02/10/1995 Historical Encounter Global Social History Tobacco Use [...] filedocumented in this encounter Care Teams Bottom Stop Attacher Relationship Specialty Start Date End Date Shala Ware MD [address] [place] [address] PCP - General 06/14/08 09/08/12 Mary Ann Cary MD [address] [place] [address] PCP - General Family Medicine 09/09/12 02/16/15 Oralia Jarrett APRN [address] [place] [address] PCP - General Nurse Practitioner 02/17/15 07/30/15 Trisha Bustamante [place], [place] PCP - General Family Medicine 07/31/15 11/07/17 Jane Oden MD [address] [place] [address] [address] [place] [address] PCP - General Obstetrics & Gynecology 05/09/20 1 Ria Carbone APRN [facility] [address], [place] [address] PCP - General Nurse Practitioner 02/08/21 Rula Anthony MD 1000 [facility] [address] [place] [address] Pulmonary Disease 05/09/20 Tayler Nelson APRN [address] [place] [address] [address] [place] [address] Nurse Practitioner Nurse Practitioner 01/29/21 documented as of this encounter
--- OUTSIDE RECORDS SUMMARY | 2025-06-13 14:33 | XMS_ITS | Clinical Summary ---
Author Organization [facility] Address [address] [place] [address] Care Team Providers Care Social Worker Assistant Name Role Phone Rula Anthony MD Unavailable [phone] Tayler Nelson APRN Unavailable [phone] Ria Carbone APRN Primary Care Provider Allergies Active Allergy Reactions Criticality Noted Date Comments Amoxicillin-Pot Clavulanate Rash Medium 11/19/19 11 Codeine Nausea And Vomiting 09/08/2008 Other Nausea And Vomiting 09/05/2008 Novacaine Medications tiotropium (SPIRIVA) 18 mcg inhalation cap Take 1 Cap by inhalation Daily. Active albuterol (PROVENTIL) 2.5 mg /3 mL (0.083 %) nebulization Take 1 Vial by nebulization Every 4 hours as needed for Wheezing. Active aspirin (ASPIRIN) [address] tablet 81 mg Every 24 hours. 6 Active atorvastatin (LIPITOR) 40 mg tablet 40 mg Daily. 6 Active carvediloL (COREG) 3.125 mg 1 Tab Twice a day. 6 Active clopidogreL (PLAVIX) 75 mg tablet 75 mg Daily. 6 Active fluticasone propionate (FLONASE) 50 mcg/Actuation nasal spray 1 [place] Daily as needed. Active lisinopriL (PRINIVIL) 5 mg tablet 5 mg Twice a day. 6 Active nitroglycerin (NITROSTAT) 0.4 mg SL tablet 0.4 mg As directed as needed. 10/14/201 6 Active albuterol (PROAIR HFA) 90 mcg/Actuation inhaler Take 2 Puffs by inhalation Every 4 hours as needed. Active tiotropium-oloda teroL (STIOLTO RESPIMAT) 2.5-2.5 mcg/actuation inhalerIndicatio ns:Simple chronic bronchitis (HCC) Take 2 Puffs by inhalation Daily. 1 Each 3 1 Active predniSONE (DELTASONE) 20 mg tabletIndication s:Acute cough,Chronic obstructive pulmonary disease with acute exacerbation (HCC) 40mg daily for 3 days then 20mg daily for 2 days then discontinue 8 Tablet 4 Active benzonatate (TESSALON) 100 mg capsuleIndicatio ns:Acute cough,Chronic obstructive pulmonary disease with acute exacerbation (HCC) Take 1 Capsule by mouth Three times a day. 40 Capsule 4 Active Active Problems Problem Noted Date Diagnosed Date Coronary artery disease 01/31/2021 S/P coronary artery stent placement 01/31/2021 Old myocardial infarction 01/31/2021 Essential hypertension 01/31/2021 Other hyperlipidemia 01/31/2021 Systolic murmur at cardiac apex 01/31/2021 Chronic obstructive pulmonary disease 01/31/2021 Simple chronic bronchitis 05/09/2020 Tobacco use disorder 11/19/2010 Immunizations Immunization Administration Dates Next Due TD 03/13/2015 Family History Medical History Relation Name Comments Asthma Father asthma Heart Disease Father MD Hypertension Father Asthma Mother emphysema Cancer Mother Stomach Cancer Epilepsy Sister 1 Seizures Relation Name Status Comments Brother 1 Alive Brother 2 Alive Father Alive Maternal Grandfather Maternal Grandmother Mother Paternal Grandfather Paternal Grandmother Sister 1 Alive Sister 2 Alive Sister 3 Alive Sister 4 Alive Social History Tobacco Use Types Packs/Day Years Used Date Smoking Tobacco: Every Day Cigarettes 0.5 50 Smokeless Tobacco: Never Tobacco Cessation:Ready to Q uit: Not Asked; Counseling Given: Not Answered Comments:Quit Smoking 2004 Smoked 3 ppd/ 40 years; as of 01/29/21 Alcohol Use Standard Drinks/Week Comments No 0 (1 standard drink = 0.6 oz pur e alcohol) Rare Etoh Use Sex and Gender Information Value Date Recorded Sex Assigned at Not on file Legal Sex Male 9:52 PM EST Gender Identity Not on file Sexual Orientation Not on file Last Filed Vital Signs Vital Sign Reading Time Taken Comments Blood Pressure 137/87 09/15/2024 2:45 PM EST Pulse 64 09/15/2024 2:45 PM EST Temperature 36.7 C (98 F) 09/15/2024 2:45 PM EST Respiratory Rate 23 09/15/2024 2:45 PM EST Oxygen Saturation 97% 09/15/2024 2:45 PM EST Inhaled Oxygen Concentration - - Weight 76.7 kg (169 lb) 09/15/2024 2:45 PM EST Height 172.7 cm (5' 8 ) 10/30/2021 8:52 AM EST Body Mass Index 25.7 10/30/2021 8:52 AM EST Plan of Treatment Health Maintenance Due Date Last Done Comments COLOGUARD 1956 COLONOSCOPY 1956 Colorectal Screening Combination 1956 FIT 1956 HEP C SCREENING 1956 SIGMOIDOSCOPY 1956 Shingles Vaccine (Shingrix) (1 of 2) 2006 DTAP/TDAP/TD VACCINE (1 - Tdap) 03/14/2015 03/13/2015 ANNUAL WELLNESS EXAM 12/14/2017 12/13/2016 AAA SCREEN (Abdominal Aortic Aneurysm) 2021 INFLUENZA VACCINE (#1) 2025 LUNG CANCER SCREENING (LDCT) 09/08/202501/2024, 08/01/2023, 02/15/2022, Additional history exists PNEUMOCOCCAL VACCINE 65+ YEARS (3 of 3 - PCV20 or PCV21) 11/08/2025 11/08/2020, 12/13/2016 HEP A VACCINE Aged Out 02/06/2018 No longer elig ible based on patient's age to complete this topic HIB VACCINE Aged Out No longer eligi ble based on patient's age to complete this topic ROTOVIRUS VACCINE Aged Out No longer eligible based on patient's age to complete this topic Procedures Procedure Name Priority Date/Time Associated Diagnosis Comments CT LOW DOSE LUNG Routine 09/08/2024 3:14 PM EST Personal history of tobacco use, presenting hazards to health from Last 3 Months or Most Recently Relevant to Health Maintenance Results * CT LUNG ELIGIBLE LOW DOSE SCREENING (09/08/2024 3:14 PM EST) Anatomical Region Laterality Modality Chest Computed Tomogra phy 09/08/2024 Narrative 09/08/2024 3:55 PM EST [facility] [address] [place] [address] Radiology PATIENT NAME: Manolo Trevino MR#: [id number] PROCEDURE DATE: 09/08/2024 ROOM#: ORDERING PHYS: Ria Carbone EXAM: Chest LDCT INDICATION: Screening COMPARISON: 08/01/2023. TECHNIQUE: Low dose helical thin section data acquisition with MPRs. Computer aided nodule detection was used. Dose reduction methods were utilized. HISTORY: Documented smoking history. FINDINGS: Evaluation of the cardiomediastinal structures is limited secondary to lack of IV contrast and low-dose protocol. Within these limits, the cardiomediastinal structures show no acute abnormalities. Atherosclerotic aorta. Multivessel coronary artery disease. There is no evidence of mediastinal mass or lymphadenopathy. Calcified mediastinal and hilar lymph nodes noted. The lungs are well inflated. Diffuse COPD/emphysema with scarring and atelectasis. Scattered ground-glass and ill-defined nodular densities noted suggesting mild post infectious/inflammatory change. A few nodules are noted measuring up to 4 mm, unchanged since the comparison study. No suspicious nodule or mass. There is no evidence of pneumothorax, pleural effusion or consolidation. Airway is unremarkable. The included portion of the upper abdomen demonstrates no acute abnormality. Included osseous structures are without acute finding. Degenerative change. IMPRESSION: 1. COPD/emphysema with scarring and atelectasis as well as a few scattered pulmonary nodules measuring up to 3-4 mm. 2. No focal consolidation/pneumonia. Scattered ground-glass and ill-defined nodules are noted which could indicate minimal infectious/inflammatory pneumonitis. 3. Atherosclerotic disease. Other chronic findings as noted. ASSESSMENT: Lung-RADS category 2 - Benign appearance or behavior. Nodules with a very low likelihood of becoming a clinically active cancer due to small size or lack of growth. Findings include: Juxtapleural nodule < 10mm mean diameter at baseline or new and solid; smooth margins; and oval, lentiform, or tirangular shape. Solid nodule(s): < 6mm or new < 4mm. Part solid nodule(s): < 6 mm total diameter on baseline screening. Non solid nodule(s) (GGN): < 30 mm or 30 mm and unchanged or slowly growing. Airway Nodule, subsegmental at baseline, new, or stable. Category 3 nodule that is stable or decreased in size at 6 month follow-up CT, Catagory 3 or 4a that resolve on follow up, category 4b findings proven to be benign in etiology following appropriate diagnostic workup. Continue annual screening. MODIFIER: None. RECOMMENDATION: Chest LDCT in 12 months. THIS IS AN ELECTRONICALLY VERIFIED REPORT 09/08/2024 3:55 PM: MD Doron Aguilar MD bw TD: 09/08/2024 JOB #: [id number] Radiology Page 1 of 1 COPY Ria Carbone APRN IMLaura CT ORDERABLES Final Res ult from Last 3 Months or Most Recently Relevant to Health Maintenance Insurance [employer] BLUE MEDICARE ACCESS * Guarantor: LEAD Account Type Relation to Patient Date of Phone Billing Address [facility] Occupational Medicine Employer 10/06/1948 [id number] (Work) [address] [place] [address] * Guarantor: LEAD Account Type Relation to Patient Date of Phone Billing Address [facility] Occupational Medicine Employer 03/01/1968 [address] [place] [id number] Care Teams Social Worker Assistant Relationship Specialty Start Date End Date Ria Carbone APRN [address] [place] [address] PCP - General Nurse Practitioner 02/08/21 Rula Anthony MD [address] [place] [address] Pulmonary Disease 05/09/20 Tayler Nelson APRN [address] [place] [address] Nurse Practitioner Nurse Practitioner 01/29/21
--- OUTSIDE RECORDS SUMMARY | 2025-06-13 14:33 | XMS_ITS | Encounter Summary ---
Author Organization [facility] Address [address] [place] [address] Care Team Providers Care Social Media Executive Name Role Phone Shala Ware MD Primary Care Provider [phone] Mary Ann Cary MD Primary Care Provider Unavailabl Oralia Otoole APRN Primary Care Provider [phone] Doctor, No Primary Care Provider Unavailabl Jane Bolton MD Primary Care Provider [phone] Rula Anthony MD Unavailable [phone] Tayler Nelson APRN Unavailable [phone] Ria Carbone APRN Primary Care Provider [phone] Encounter Details Date Type Department Care Team (Late st Contact Info) Description 10/29/2005 Historical Encounter [place], [place] Social History Tobacco Use Types Packs/Day Years [...] on filedocumented in this encounter Care Teams Social Media Executive Relationship Specialty Start Date End Date Shala Ware MD [address] [place] [address] PCP - General 06/14/08 09/08/12 Mary Ann Cary MD [address] [place] [address] PCP - General Family Medicine 09/09/12 02/16/15 Oralia Jarrett APRN [address] [place] [address] PCP - General Nurse Practitioner 02/17/15 07/30/15 Trisha Bustamante [place], [place] PCP - General Family Medicine 07/31/15 11/07/17 Jane Oden MD [address] [place] [address] [address] [place] [address] PCP - General Obstetrics & Gynecology 05/09/20 1 Ria Carbone APRN [address] [place] [address] PCP - General Nurse Practitioner 02/08/21 Rula Anthony MD [address] [facility] [address] [place] [address] Pulmonary Disease 05/09/20 Tayler Nelson APRN [address] [place] [address] [facility] [address] [place] [address] Nurse Practitioner Nurse Practitioner 01/29/21 documented as of this encounter
--- OUTSIDE RECORDS SUMMARY | 2025-06-13 14:33 | XMS_ITS | Encounter Summary ---
Author Organization [facility] Address [address] [place] [address] Care Team Providers Care Claims Adjuster Supervisor Name Role Phone Shala Ware MD Primary Care Provider [phone] Mary Ann Cary MD Primary Care Provider Unavailabl Oralia Otoole APRN Primary Care Provider [phone] Doctor, No Primary Care Provider Unavailabl Jane Bolton MD Primary Care Provider [phone] Rula Anthony MD Unavailable [phone] Tayler Nelson APRN Unavailable [phone] Ria Carbone APRN Primary Care Provider [phone] Encounter Details Date Type Department Care Team (Late st Contact Info) Description 07/09/2004 Historical Encounter Global Mily Castro MD [address] [place] [address] ZAK QURESHI [id number] Social History Tobacco Use Types Packs/Day Years [...] on filedocumented in this encounter Care Teams Claims Adjuster Supervisor Relationship Specialty Start Date End Date Shala Ware MD [address] [place] [address] PCP - General 06/14/08 09/08/12 Mary Ann Cary MD [address] [place] [address] PCP - General Family Medicine 09/09/12 02/16/15 Oralia Jarrett APRN [address] [place] [address] PCP - General Nurse Practitioner 02/17/15 07/30/15 Trisha Bustamante [place], [place] PCP - General Family Medicine 07/31/15 11/07/17 Jane Oden MD [address] [place] [address] [address] [place] [address] PCP - General Obstetrics & Gynecology 05/09/20 1 Ria Carbone APRN [address], [place] [address] PCP - General Nurse Practitioner 02/08/21 Rula Anthony MD 1000 [facility] [address] [place] [address] Pulmonary Disease 05/09/20 Tayler Nelson APRN [address] [place] [address] [address] Nurse Practitioner Nurse Practitioner 01/29/21 documented as of this encounter
--- OUTSIDE RECORDS SUMMARY | 2025-06-13 14:33 | XMS_ITS | Encounter Summary ---
Author Organization [facility] Address [address] [place] [address] Care Team Providers Care Urban Sociologist Name Role Phone Shala Ware MD Primary Care Provider [phone] Mary Ann Cary MD Primary Care Provider Unavailabl Oralia Otoole APRN Primary Care Provider [phone] Doctor, No Primary Care Provider Unavailabl Jane Bolton MD Primary Care Provider [phone] Rula Anthony MD Unavailable [phone] Tayler Nelson APRN Unavailable [phone] Ria Carbone APRN Primary Care Provider [phone] Encounter Details Date Type Department Care Team (Late st Contact Info) Description 05/10/2003 Historical Encounter [facility] [place] Social History Tobacco Use Types Packs/Day Years [...] on filedocumented in this encounter Care Teams Urban Sociologist Relationship Specialty Start Date End Date Shala Ware MD [address] [place], [place] [address] PCP - General 06/14/08 09/08/12 Mary Ann Cary MD [address] [place] [address] PCP - General Family Medicine 09/09/12 02/16/15 Oralia Jarrett APRN [address] [place] [address] PCP - General Nurse Practitioner 02/17/15 07/30/15 Trisha Bustamante [place], [place] PCP - General Family Medicine 07/31/15 11/07/17 Jane Oden MD [address] [place] [address] [address] [place] [address] PCP - General Obstetrics & Gynecology 05/09/20 1 Ria Carbone APRN [address], [place] [address] PCP - General Nurse Practitioner 02/08/21 Rula Anthony MD 1000 [facility] [address] [place] [address] Pulmonary Disease 05/09/20 Tayler Nelson APRN 1000 [facility] [address] [place] [address] Nurse Practitioner Nurse Practitioner 01/29/21 documented as of this encounter
--- OUTSIDE RECORDS SUMMARY | 2025-06-13 14:33 | XMS_ITS | Encounter Summary ---
Author Organization [facility] Address [address] [place] [address] Care Team Providers Care Consumer Relations Specialist Name Role Phone Shala Ware MD Primary Care Provider [phone] Mary Ann Cary MD Primary Care Provider Unavailabl Oralia Otoole APRN Primary Care Provider [phone] Doctor, No Primary Care Provider Unavailabl Jane Bolton MD Primary Care Provider [phone] Rula Anthony MD Unavailable [phone] Tayler Nelson APRN Unavailable [phone] Ria Carbone APRN Primary Care Provider [phone] Encounter Details Date Type Department Care Team (Late st Contact Info) Description 08/23/1996 Historical Encounter Global Social History Tobacco Use [...] on filedocumented in this encounter Care Teams Consumer Relations Specialist Relationship Specialty Start Date End Date Shala Ware MD [address] [place] [address] PCP - General 06/14/08 09/08/12 Mary Ann Cary MD [address] [place] [address] PCP - General Family Medicine 09/09/12 02/16/15 Oralia Jarrett APRN [address] [place] [address] PCP - General Nurse Practitioner 02/17/15 07/30/15 Trisha Bustamante [place], [place] PCP - General Family Medicine 07/31/15 11/07/17 Jane Oden MD [address] [place] [address] [address] [place] [address] PCP - General Obstetrics & Gynecology 05/09/20 1 Ria Carbone APRN [facility] [address], [place] [address] PCP - General Nurse Practitioner 02/08/21 Rula Anthony MD 1000 [facility] [address] [place] [address] Pulmonary Disease 05/09/20 Tayler Nelson APRN [address] [place] [address] [facility] [address] [place] [address] Nurse Practitioner Nurse Practitioner 01/29/21 documented as of this encounter
--- OUTSIDE RECORDS SUMMARY | 2025-06-13 14:33 | XMS_ITS | Encounter Summary ---
Author Organization [facility] Address [address] [place] [address] Care Team Providers Care Design Analyst Name Role Phone Oralia Jarrett APRN Primary Care Provider [phone] Doctor, Trisha Primary Care Provider UnavailJane Gatica MD Primary Care Provider [phone] Rula Anthony MD Unavailable [phone] Tayler Nelson APRN Unavailable [phone] Ria Carbone APRN Primary Care Provider [phone] Encounter Details Date Type Department Care Team (Late st Contact Info) Description 03/08/2015 Telephone Patient Access Center [address] [place] [address] Leilani Pollock RN Social History Tobacco Use Types Packs/Day Years Used Date Smoking Tobacco: Every Day Cigarettes 1.3 0.5 Smokeless Tobacco: Never Comments:Quit Smoking 2004 S moked 3 ppd/ 40 years Alcohol Use Standard Drinks/Week Comments No 0 (1 standard drink = 0.6 oz pur e alcohol) Rare Etoh Use Sex and Gender Information Value Date Recorded Sex Assigned at Not on file Legal Sex Male 9:52 PM EST Gender Identity Not on file Sexual Orientation Not on file documented as of this encounter Miscellaneous Notes * Nurse Triage - Leilani Pollock RN - 03/08/2015 4:25 PM EDT stated that his wounds are green, and needs to be seen. Reviewed with patient that there was acancellation at the clinic and that she can bring him in at any time. Stated that she would bring him in. * Nurse Triage - Leilani Pollock RN - 03/08/2015 12:44 PM EDT Called patient to check about how he is doing with his legs. Patient stated that he has carr on both legs, Left leg is about 3 and The right is about 6 , both are burned aprox all the way around. Patient stated that he may go to the ER after his gets home. Stated he was keeping his carr clean and showering 2x day and applying the silvadine cream 2xday Stated that he keeps his legs up as much as possible, d/t the swelling in his feet. Stated his feetlook like they go to a little 600lb person. He stated that the swelling is not in the carr. Reviewed with patient that carr can cause swelling and can get infected and cause severe tissue damage. Stated that he knew that. He stated that he does have an appt on Friday and that he thought that he was ok until then. Reviewed with patient about his meds. enc'd question. Stated that the carr were draining at first but now they are dry. They are still freeman in color, nochanges. Denies blisters. Stated that he is still having pain and that he was trying to save his pain meds for the ivory to help him sleep. Again enc'd to go to the ER to maybe change his meds, to have his carr looked at and to have his swelling looked at. Stated that he may. He will wait on his to get home and then he will see. Stated that he will call if he needs anything, or has questions. Stated that he will call today when he decides if he is going to the ER or not. documented in this encounter Plan of Treatment Not on file documented as of this encounter Visit Diagnoses Not on filedocumented in this encounter Care Teams Design Analyst Relationship Specialty Start Date End Date Oralia Jarrett APRN [address] [place] [address] PCP - General Nurse Practitioner 02/17/15 07/30/15 Trisha Bustamante [place] PCP - General Family Medicine 07/31/15 11/07/17 Jane Oden MD [address] [place] [address] [address] [place] [address] PCP - General Obstetrics & Gynecology 05/09/20 1 Ria Carbone APRN [address] [place] [address] PCP - General Nurse Practitioner 02/08/21 Rula Anthony MD 1000 [facility] [address] [place] [address] Pulmonary Disease 05/09/20 Tayler Nelson APRN [address] [place] [address] [address] Nurse Practitioner Nurse Practitioner 01/29/21 documented as of this encounter
--- OUTSIDE RECORDS SUMMARY | 2025-06-13 14:33 | XMS_ITS | Encounter Summary ---
Author Organization [facility] Address [address] [place] [address] Care Team Providers Care Core Mounter Name Role Phone Shala Ware MD Primary Care Provider [phone] Mary Ann Cary MD Primary Care Provider Unavailabl Oralia Otoole APRN Primary Care Provider [phone] Doctor, No Primary Care Provider Unavailabl Jane Bolton MD Primary Care Provider [phone] Rula Anthony MD Unavailable [phone] Talyer Nelson APRN Unavailable [phone] Ria Cabrone APRN Primary Care Provider [phone] Encounter Details Date Type Department Care Team [...] on filedocumented in this encounter Care Teams Core Mounter Relationship Specialty Start Date End Date Shala Ware MD [address] [place] [address] PCP - General 06/14/08 09/08/12 Mary Ann Cary MD [address] [place] [address] PCP - General Family Medicine 09/09/12 02/16/15 Oralia Jarrett APRN [address] [place] [address] PCP - General Nurse Practitioner 02/17/15 07/30/15 Trisha Bustamante [place] PCP - General Family Medicine 07/31/15 11/07/17 Jane Oden MD [address] [place] [address] [address] [place] [address] PCP - General Obstetrics & Gynecology 05/09/20 1 Ria Carbone APRN [facility] [address], [place] [address] PCP - General Nurse Practitioner 02/08/21 Rula Anthony MD 1000 [facility] [address] [place] [address] Pulmonary Disease 05/09/20 Tayler Nelson APRN [address] [place] [address] [facility] [address] [place] [address] Nurse Practitioner Nurse Practitioner 01/29/21 documented as of this encounter
--- OUTSIDE RECORDS SUMMARY | 2025-06-13 14:33 | XMS_ITS | Encounter Summary ---
Author Organization [facility] Address [address] [place] [address] Care Team Providers Care Rim Fire Priming Tool Setter Name Role Phone Shala Ware MD Primary Care Provider [phone] Mary Ann Cary MD Primary Care Provider Unavailabl Oralia Otoole APRN Primary Care Provider [phone] Doctor, No Primary Care Provider Unavailabl Jane Bolotn MD Primary Care Provider [phone] Rula Anthony MD Unavailable [phone] Tayler Nelson APRN Unavailable [phone] Ria Carbone APRN Primary Care Provider [phone] Encounter Details Date Type Department Care Team (Late st Contact Info) Description 03/02/1996 Historical Encounter Global [place] Social History Tobacco Use Types Packs/Day Years [...] on filedocumented in this encounter Care Teams Rim Fire Priming Tool Setter Relationship Specialty Start Date End Date Shala Ware MD [address] [place], [place] [address] PCP - General 06/14/08 09/08/12 Mary Ann Cary MD [address] [place] [address] PCP - General Family Medicine 09/09/12 02/16/15 Oralia Jarrett APRN [address] [place] [address] PCP - General Nurse Practitioner 02/17/15 07/30/15 Trisha Bustamante [place] PCP - General Family Medicine 07/31/15 11/07/17 Jane Oden MD [address] [place] [address] [address] [place] [address] PCP - General Obstetrics & Gynecology 05/09/20 1 Ria Carbone APRN [address] [place] [address] PCP - General Nurse Practitioner 02/08/21 Rula Anthony MD 1000 [facility] [address] [place] [address] Pulmonary Disease 05/09/20 Tayler Nelson APRN 1000 [facility] [address] [place] [address] Nurse Practitioner Nurse Practitioner 01/29/21 documented as of this encounter
--- OUTSIDE RECORDS SUMMARY | 2025-06-13 14:33 | XMS_ITS | Encounter Summary ---
Author Organization [facility] Address [address] [place] [address] Care Team Providers Care Inclusion Manager Name Role Phone Shala Ware MD Primary Care Provider [phone] Mary Ann Cary MD Primary Care Provider Unavailabl Oralia Otoole APRN Primary Care Provider [phone] Doctor, No Primary Care Provider Unavailabl Jane Bolton MD Primary Care Provider [phone] Rula Anthony MD Unavailable [phone] Tayler Nelson APRN Unavailable [phone] Ria Carbone APRN Primary Care Provider [phone] Encounter Details Date Type Department Care Team (Late st Contact Info) Description 08/25/1996 Historical Encounter Global Social History Tobacco Use [...] on filedocumented in this encounter Care Teams Inclusion Manager Relationship Specialty Start Date End Date Shala Ware MD [address] [place] [address] PCP - General 06/14/08 09/08/12 Mary Ann Cary MD [address] [place] [address] PCP - General Family Medicine 09/09/12 02/16/15 Oralia Jarrett APRN [address] [place] [address] PCP - General Nurse Practitioner 02/17/15 07/30/15 Trisha Bustamante [place], [place] PCP - General Family Medicine 07/31/15 11/07/17 Jane Oden MD [address] [place] [address] [address] [place] [address] PCP - General Obstetrics & Gynecology 05/09/20 1 Ria Carbone APRN [facility] [address] [address] PCP - General Nurse Practitioner 02/08/21 Rula Anthony MD [address] [facility] [address] [place] [address] Pulmonary Disease 05/09/20 Tayler Nelson APRN [address] [place] [address] [facility] [address] [place] [address] Nurse Practitioner Nurse Practitioner 01/29/21 documented as of this encounter
--- OUTSIDE RECORDS SUMMARY | 2025-06-13 14:33 | XMS_ITS | Encounter Summary ---
Author Organization [facility] Address [address] [place] [address] Care Team Providers Care Deburrer Machine Name Role Phone Shala Ware MD Primary Care Provider [phone] Mary Ann Cary MD Primary Care Provider Unavailabl Oralia Otoole APRN Primary Care Provider [phone] Doctor, No Primary Care Provider Unavailabl Jane Bolton MD Primary Care Provider [phone] Rula Anthony MD Unavailable [phone] Tayler Nelson APRN Unavailable [phone] Ria Carbone APRN Primary Care Provider [phone] Encounter Details Date Type Department Care Team (Late st Contact Info) Description 06/28/1994 Historical Encounter Global Social History Tobacco Use [...] on filedocumented in this encounter Care Teams Deburrer Machine Relationship Specialty Start Date End Date Shala Ware MD [address] [place] [address] PCP - General 06/14/08 09/08/12 Mary Ann Cary MD [address] [place] [address] PCP - General Family Medicine 09/09/12 02/16/15 Oralia Jarrett APRN [address] [place] [address] PCP - General Nurse Practitioner 02/17/15 07/30/15 Trisha Bustamante [place], [place] PCP - General Family Medicine 07/31/15 11/07/17 Jane Oden MD [address] [place] [address] [address] [place] [address] PCP - General Obstetrics & Gynecology 05/09/20 1 Ria Carbone APRN [facility] [address] [address] PCP - General Nurse Practitioner 02/08/21 Rula Anthony MD [address] [facility] [address] [place] [address] Pulmonary Disease 05/09/20 Tayler Nelson APRN [address] [place] [address] [facility] [address] [place] [address] Nurse Practitioner Nurse Practitioner 01/29/21 documented as of this encounter
--- OUTSIDE RECORDS SUMMARY | 2025-06-13 14:34 | XMS_ITS | Encounter Summary ---
Author Organization [facility] Address [address] [place] [address] Care Team Providers Care Pricing Director Name Role Phone Jane Oden MD Primary Care Provider [phone] Rula Anthony MD Unavailable [phone] Tayler Nelson APRN Unavailable [phone] Ria Carbone APRN Primary Care Provider [phone] Reason for Visit * Reason Onset Date Comments Results - Lab 10/26/2020 Encounter Details Date Type Department Care Team (Late st Contact Info) Description 10/26/2020 Telephone Patient Access Center [address] [place] [address] Shravan Segovia RN Results - Lab Social History Tobacco Use Types Packs/Day Years Used Date Smoking Tobacco: Every Day Cigarettes 1 50 Smokeless Tobacco: Never Comments:Quit Smoking 2004 S moked 3 ppd/ 40 years Alcohol Use Standard Drinks/Week Comments No 0 (1 standard drink = 0.6 oz pur e alcohol) Rare Etoh Use Sex and Gender Information Value Date Recorded Sex Assigned at Not on file Legal Sex Male 9:52 PM EST Gender Identity Not on file Sexual Orientation Not on file COVID-19 Exposure Response Date Recorded In the last month, have you been in contact with someone who was confirmed or suspected to have Coronavirus / COVID-19? No / Unsure 10/26/2020 1:46 PM EST documented as of this encounter Miscellaneous Notes * Telephone Encounter - Shravan Segovia RN - 10/26/2020 1:26 PM EST Saul Trevino, phoned in requesting test result(s). COVID-19 result(s) shared with patient. Recommendations and education provided related to test result(s), he voiced understanding. No additional questions or concerns at this time. documented in this encounter Plan of Treatment Not on file documented as of this encounter Visit Diagnoses Not on filedocumented in this encounter Care Teams Pricing Director Relationship Specialty Start Date End Date Jane Oden MD [address] [place] [address] [address]IL [address] [place] [address] PCP - General Obstetrics & Gynecology 05/09/20 1 Ria Carbone APRN [address] [place] [address] PCP - General Nurse Practitioner 02/08/21 Rula Anthony MD [address] [facility] [address] [place] [address] Pulmonary Disease 05/09/20 Tayler Nelson APRN [address] [place] [address] Nurse Practitioner Nurse Practitioner 01/29/21 documented as of this encounter
--- OUTSIDE RECORDS SUMMARY | 2025-06-13 14:34 | XMS_ITS | Encounter Summary ---
Author Organization [facility] Address [address] [place] [address] Care Team Providers Care Benefits Advisor Name Role Phone Jane Oden MD Primary Care Provider [phone] uRla Anthony MD Unavailable [phone] Tayler Nelson APRN Unavailable [phone] Ria Carbone APRN Primary Care Provider Encounter Details Date Type Department Care Team (Late st Contact Info) Description 03/13/2018 Transcribe Orders [facility] Lab [address] [place] [address] Referral, Self [address] [place] [address] Screening for condition (Primary Dx) Social History Tobacco Use Types Packs/Day Years Used Date Smoking Tobacco: Every Day Cigarettes 1 0.5 Smokeless Tobacco: Never Comments:Quit Smoking 2004 [...] on file documented as of this encounter Results * Community Screening A1C (03/13/2018 7:46 AM EDT) HEMOGLOBIN A1C 5.6 3.0 - 6.0 % 8 11:54 AM EDT [facility] 03/13/2018 7:46 AM EDT 03/13/2018 10:05 AM EDT us Self Referral HEMATOLOGY ORDERABLES Final Resu lt [facility] [address] [place] [address] * (ABNORMAL) Community Screening Blood Panel (03/13/2018 7:46 AM EDT) WBC 9.7 4.5 - 11.0 10*3/uL 03/13/2018 10:12 AM EDT [facility] RBC 5.07 4.50 - 5.90 10*6/uL 03/13/2018 10:12 AM EDT [facility] HGB 15.0 13.5 - 17.5 g/dL 03/13/2018 10:12 AM EDT [facility] HCT 45.9 37.0 - 53.0 % 03/13/2018 10:12 AM EDT [facility] MCV 90.4 80.0 - 100.0 fL 03/13/2018 10:12 AM EDT [facility] MCHC 32.7 32.0 - 36.0 g/dL 03/13/2018 10:12 AM EDT [facility] MCH 29.6 26.0 - 34.0 pg 03/13/2018 10:12 AM EDT [facility] RDW 13.8(H) 11.5 - 13.1 % 03/13/2018 10:12 AM EDT [facility] MPV 9.8 6.5 - 10.0 fL 03/13/2018 10:12 AM EDT [facility] Platelet Cnt 201 150 - 450 10*3/uL 03/13/2018 10:12 AM EDT [facility] Differential Type Auto 018 10:12 AM EDT [facility] Neutrophils 55.2 35.0 - 66.0 % 03/13/2018 10:12 AM EDT [facility] Lymphocytes 28.6 24.0 - 44.0 % 03/13/2018 10:12 AM EDT [facility] Monocytes 9.3(H) 3.0 - 6.0 % 03/13/2018 10:12 AM EDT [facility] Eosinophils 5.5(H) 0.0 - 3.0 % 03/13/2018 10:12 AM EDT [facility] Basophils 1.4(H) 0.0 - 1.0 % 03/13/2018 10:12 AM EDT [facility] Neutrophils Abs 5.3 1.6 - 8.5 10*3/uL 03/13/2018 10:12 AM EDT [facility] Lymphocytes Abs 2.8 1.1 - 5.0 10*3/uL 03/13/2018 10:12 AM EDT [facility] Monocytes Abs 0.9(H) 0.1 - 0.7 10*3/uL 03/13/2018 10:12 AM EDT [facility] Eosinophils Abs 0.5(H) 0.0 - 0.3 10*3/uL [facility] Bas[facility] Abs 0.1 0.0 - 0.1 10*3/uL 03[facility]2018 [facility] SODIUM 142 135 - 145 mmol/L 03/13[facility]2018 [facility] POTASSIUM 3.8 3.6 - 5.0 mmol/L 03/13/2018 [facility] CHLORIDE 109 101 - 111 mmol/L 03/13[facility]2018 [facility] CO2 23 21 - 31 mmol/L 03/13/2018 10:50 AM [facility] ANION GAP 10 03[facility]13[facility]2018 [facility] GLUCOSE 86 70 - 110 mg/dL 03/13[facility]2018 [facility] CREATININE 1.0 0.6 - 1.2 mg/dL 03/13/2018 [facility] BUN 18 6 - 20 mg/dL 03/13[facility]2018 [facility] CALCIUM 8.8 8.5 - 10.5 mg/dL 03/13/2018 [facility] PROTEIN TOTAL 6.1(L) 6.7 - 8.2 g/dL 03/13[facility]2018 [facility] Albumin 3.7 3.2 - 5.0 g/dL 03/13/2018 [facility] T BILIRUBIN 0.5 0.2 - 1.0 mg/dL 03/13/2018 10:50 AM [facility] ALP 63 42 - 121 [iU]/L 03/13/2018 10:50 AM [facility] AST 15 10 - 42 [iU]/L 03/13/2018 10:50 AM [facility] ALT (SGPT) 16 10 - 60 [iU]/L 03/13/2018 10:50 AM [facility] OSMOLALITY 284 266 - 309 03/13/2018 10:50 AM [facility] A/G Ratio 1.5 03/13/2018 10:50 AM [facility] B/C 18 10 - 20 03/13/2018 10:50 AM [facility] ESTIMATED GFR 76 mL/min 03/13/2018 10:50 AM [facility] Comment: *The estimated Glomerular Filtration Rate(EGFR) may not be accurate for children under the age of 18 yrs. To estimate the GFR for -Americans multiply the result provided by 1.21. Stage 1 90 mL/min or greater Stage 2 60-89 mL/min Stage 3 30-59 mL/min Stage 4 15-29 mL/min Stage 5 14 mL/min or less CHOLESTEROL 117 10 - 200 mg/dL 03/13/2018 10:50 AM [facility] TRIGLYCERIDE 133 46 - 236 mg/dL 03/13/2018 10:50 AM [facility] HDL 30.0 27.0 - 67.0 mg/dL 03/13/2018 10:50 AM [facility] VLDL 26.6 mg/dL 03/13/2018 10:50 AM [facility] LDL 60.4 mg/dL 03/13/2018 10:50 AM [facility] Comment: CAP STANDARDIZED LDL-CHOLESTEROL VALUES <130-DESIRABLE 130-159 BORDERLINE/HIGH RISK >160-HIGH RISK RISK 1, MALE 3.90 03/13/2018 10:50 AM [facility] Comment: TOTAL CHOL/HDL 1/2 AVERAGE 3.43 AVERAGE 4.97 2 X AVERAGE 9.55 3 X AVERAGE 23.39 RISK 2, MALE 2.01 03/13/2018 10:50 AM [facility] Comment: LDL/HDL 1/2 AVERAGE 1.00 AVERAGE 3.55 2 X AVERAGE 6.25 3 X AVERAGE 7.99 RISK 1, FEMALE 3.90 03/13/2018 10:50 AM EDT [facility] Comment: TOTAL CHOL/HDL 1/2 AVERAGE 3.27 AVERAGE 4.44 2 X AVERAGE 7.05 3 X AVERAGE 11.04 RISK 2, FEMALE 2.01 03/13/2018 10:50 AM EDT [facility] Comment: LDL/HDL 1/2 AVERAGE 1.47 AVERAGE 3.22 2 X AVERAGE 5.03 3 X AVERAGE 6.14 TSH 4.83 0.30 - 5.60 u[iU]/mL 03/13/2018 10:51 AM EDT [facility] 03/13/2018 7:46 AM EDT 03/13/2018 10:08 AM EDT us Self Referral HEMATOLOGY ORDERABLES Final Resu lt [facility] [address] [place] [address] documented in this encounter Visit Diagnoses Diagnosis Screening for condition- Primary Screening for unspecified condition documented in this encounter Care Teams Benefits Advisor Relationship Specialty Start Date End Date Jane Oden MD [address] [place] [address] [address] [place] [address] PCP - General Obstetrics & Gynecology 05/09/20 1 Ria Carbone APRN [facility] [address] [address] PCP - General Nurse Practitioner 02/08/21 Rula Anthony MD [address] [facility] [address] [place] [address] Pulmonary Disease 05/09/20 Tayler Nelson APRN [address] [place] [address] [address] [place] [address] Nurse Practitioner Nurse Practitioner 01/29/21 documented as of this encounter
--- OUTSIDE RECORDS SUMMARY | 2025-06-13 14:34 | XMS_ITS | Clinical Summary ---
Author Organization [facility] Address [address] [facility], [address] [place] [address] Care Team Providers Care Candy Packer Name Role Phone Ria Serna LACE INSPECTOR - PLANT MAINTENANCE WORKER Primary Care Provider Active Problems Problem Noted Date Diagnosed Date Tobacco use 09/10/2016 Dyspnea 09/10/2016 Simple chronic bronchitis 09/10/2016 Social History Tobacco Use Types Packs/Day Years Used Date Smoking Tobacco: Never Assessed Sex and Gender Information Value Date Recorded Sex Assigned at Not on file Legal Sex Male 10:45 PM EST Gender Identity Not on file Sexual Orientation Not on file Plan of Treatment Not on file Care Teams Candy Packer Relationship Specialty Start Date End Date Ria Serna APRN - [place]SE [place] JESUS [address] [place] [address] PCP - General 09/10/16
== END 2025-06-13 23:59 | disposition home or self-care (01) ==
LOC: RT 14:31
PROVIDERS: PCP Nurse Practitioner Family; Visit Provider Nurse Practitioner
DX: I82.409 Acute embolism and thrombosis of unspecified deep veins of unspecified lower extremity (principal); R22.42 Localized swelling, mass and lump, left lower limb; I25.10 Atherosclerotic heart disease of native coronary artery without angina pectoris; I10 Essential (primary) hypertension; E78.5 Hyperlipidemia, unspecified; F17.200 Nicotine dependence, unspecified, uncomplicated; Z79.01 Long term (current) use of anticoagulants; Z79.82 Long term (current) use of aspirin; Y93.I9 Activity, other involving external motion
CPT/HCPCS: 93971